=== PATIENT | male | born 1965 | race Caucasian/White ===

== ENCOUNTER 2023-06-04 11:31 | Emergency (ER) | payer OTHER, SELFPAY ==
--- NOTE | 2023-06-04 11:43 | ED.GENADULT ---
HPI - General Adult General Time Seen by Provider: 11:43 Date Seen: 06/04/23 Chief complaint: Laceration/Wound Stated complaint: finger lac Time Seen by Provider: 06/04/23 11:42 History of Present Illness HPI narrative: This is a very pleasant 57-year-old male who presents to the ER today for a work related laceration to his left hand index finger, on the dorsum of the PIP joint. He is up-to-date on tetanus. He is not diabetic or immunosuppressed. He was at work, at [email or web address], today. He was using a drill. He was holding the drill in his right hand. When the drill slipped he accidentally gouged the dorsum of the PIP joint of his left index finger. 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 He suffered a laceration to the skin on the dorsum of the finger. Initially the fingers quite shaky. He was able to control the bleeding by direct pressure. His initial plan was to put a bandage on the finger let it heal. 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 He is not sure if he needs stitches. No associated numbness in the finger. He is able to flex and extend the finger without difficulty. No other injury. Incidentally he mentions that he had a laceration to the flexor surface of the 5th digit of his left hand a few years ago that was repaired. 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 He wonders if there is a way to get full function of his finger back. Related Data Home Medications Medication Instructions Recorded Confirmed No Known Home Medications 06/04/23 06/04/23 Allergies Allergy/AdvReac Type Severity Reaction Status Date / Time No Known Drug Allergies Allergy Verified 06/04/23 11:49 [facility] Social History Smoking Status: Former smoker How often do you have a drink containing alcohol: never AUDIT-C Alcohol total score: 0 Non-prescribed substance use: denies use Exam Narrative: Exam Narrative: Constitutional: Appears well-developed and well-nourished. Alert. Conversant. Non toxic. HENT: Head: Atraumatic. Nose: Nose normal. Mouth/Throat: Oral mucosa is clear and moist. no trismus. Pharynx normal. Tonsils symmetric. No tonsillar enlargement, erythema, or exudate. Eyes: Conjunctivae normal. EOM normal. Pupils equal, round, and reactive to light. No scleral icterus. Neck: Normal range of motion. Neck supple. No tracheal deviation present. Cardiovascular: Normal rate, regular rhythm.Symmetric radial artery pulses . No active bleeding. Normal distal cap refill. She when we fully flex the PIP joint of his finger there is a small amount of days it is oozing from the laceration. Pulmonary/Chest: Effort normal. No stridor. No respiratory distress. Musculoskeletal: RUE: Normal range of motion. No tenderness. No deformity LUE: Normal except for his index finger. There is a 1 cm linear laceration which is perpendicular to the axis of his finger. It is directly over the dorsum of the PIP joint and essentially is within 1 of the natural skin folds there. With the PIP fully extended the wound edges close nicely. When he flexes the PIP the wound edge opens up about 1-2 mm. No foreign body. No visible extension into the extensor tendon or joint space. Intact flexion and extension of the MCP, PIP, DI P joint. Normal radial and ulnar digital nerve function. Normal cap refill RLE: Normal range of motion. No edema. No tenderness. No deformity LLE: Normal range of motion. No edema. No tenderness. No deformity Lymph: No cervical adenopathy. Neurological: Alert and oriented to person, place, and time. Normal strength. CN II-VII intact. No sensory deficit. GCS eye subscore is 4. GCS verbal subscore is 5. GCS motor subscore is 6. Normal coordination Skin: Skin is warm and dry. No rash noted. No pallor. Normal capillary refill. Psychiatric: Normal mood. Normal affect. Const: Vital Signs, click to edit/add: Vital Signs - 24 hr 06/04/23 11:47 Temperature 98.6 F Pulse Rate [Right Pulse Oximeter] 50 L Respiratory Rate 18 Blood Pressure [Ri ght Upper Arm] 136/80 Pulse Oximetry 100 Oxygen Delivery Me thod Room Air Course Vital Signs Vital signs: Initial Vital Signs Temperature 98.6 F 06/04/23 11:47 Temperature Source Temporal Artery Scan 06/04/23 11:47 Pulse Rate 50 L 06/04/23 11:47 Respiratory Rate 18 06/04/23 11:47 Blood Pressure 136/80 06/04/23 11:47 Blood Pressure Mean 98 06/04/23 11:47 Blood Pressure Position Sitting 06/04/23 11:47 Pulse Oximetry 100 06/04/23 11:47 Oxygen Delivery Method Room Air 06/04/23 11:47 Vital Signs Temperature 98.6 F 06/04/23 11:47 Pulse Rate 50 L 06/04/23 11:47 Respiratory Rate 18 06/04/23 11:47 Blood Pressure 136/80 06/04/23 11:47 Pulse Oximetry 100 06/04/23 11:47 Oxygen Delivery Method Room Air 06/04/23 11:47 Temperature 98.6 F 06/04/23 11:47 Pulse Rate 50 L 06/04/23 11:47 Respiratory Rate 18 06/04/23 11:47 Blood Pressure 136/80 06/04/23 11:47 Pulse Oximetry 100 06/04/23 11:47 Oxygen Delivery Method Room Air 06/04/23 11:47 Medical Decision Making MDM Narrative Medical decision making narrative: Findings and exam are consistent with an finger laceration. After discussion of options for care including healing by secondary intention with dressing and immobilization versus primary closure, patient requested primary closure. Wound was repaired as noted above. There is no evidence at this time to suggest any associated fracture or foreign body. There is no evidence to suggest tendon or arterial injury and patient is neurologically in tact. The patient is to follow up for suture removal as instructed in 7-8 days. Indications to seek urgent reevaluation and signs of infection (including but not limited to increasing pain, redness, swelling, fevers, and drainage) were reviewed. Tetanus is up-to-date. This is a clean and non-contaminated wound in which prophylactic antibiotics are not indicated. An understanding of the discharge instructions and need for follow up were verbally confirmed. Incidentally, he also notes that he has a chronic contracture involving the pinky finger of that left hand from previous injury. No need for emergent intervention here in the ER. Recommend outpatient follow-up with hand surgery to figure out if a surgical revision may restore full motion to that digit. Discharge Plan Discharge Clinical Impression: Finger laceration Patient Disposition: Home, Self-Care Condition: Stable Instructions: Finger Laceration (ED) Additional Instructions: As we discussed, please remove the stitches in 7-10 days. Follow up with her regular doctor, or with the worker's comp doctor through [email or web address]. If you have any concern for infection such as redness, swelling, pus draining from her wound, fever, or any other problems, please come back to the ER right away. By the way, for the scar tissue on your pinky finger, you could call to make an appointment with an orthopedic hand surgeon. This may be surgically repairable. There is not a hand surgeon in [place]. The best way to find hand surgeon would be to check with her insurance company to find out which clinics are ?in network?. You could call to make an appointment with a hand surgeon at [facility], [facility], or [facility] Prescriptions: No Action No Known Home Medications Stand Alone Forms: [employer] Info Instructions Procedures Laceration Left index finger-dorsal PIP joint: Pre procedure diagnosis: Left index finger laceration, dorsum of left PIP joint Written consent by: patient Verification/time out: correct patient, correct site and correct procedure Site: hand (Left index finger, dorsal PIP joint) Side (If applicable): left Size (cm): 1 Description: linear Depth: simple, single layer Local Anesthetic: lidocaine 1% (Digital block. I used a dorsal approach within the radial and ulnar injection. Good anesthesia achieved. No complications. No intravascular injection.) Amount of anesthesia used (mL): 4 Skin layer closed with: nylon Size (cm): 5-0 Number of sutures: 3 Technique: simple, interrupted
[2023-06-04 11:47] VITALS: BP 136/80; PULSE 50; RESP 18; TEMP 37; O2SAT 100; BMI 26.5
--- NOTE | 2023-06-04 13:00 | ED.NURSE ---
pt given note for work
== END 2023-06-04 13:01 | disposition home or self-care (01) ==
PROVIDERS: Emergency Provider Emergency Medicine
DX: S61.211A Laceration without foreign body of left index finger without damage to nail, initial encounter (principal); W29.8XXA Contact with other powered hand tools and household machinery, initial encounter
CPT/HCPCS: 12001; 99283